=== PATIENT | female | born 1935 | race Caucasian/White ===

== ENCOUNTER 2019-04-12 12:20 | Inpatient (IN) | payer OTHER ==
[~2019-04-12] VITALS: Ht 157.5 cm; Wt 55.7 kg
--- NOTE | ~2019-04-12 | O ---
[facility] [place] [address] OPERATIVE REPORT Name: MALA VAZQUEZ Room #: 421-P [facility] IN M.R.#: [id number] Admission: 04/12/19 ������������������ Attend Phys: Khoa Juares MD Discharge: ������������������ Date of : 34 Report #: [id number] THIS REPORT FOR: //name// CC: Khoa Taylor DATE OF SERVICE: 04/13/2019 PREOPERATIVE DIAGNOSIS: Left hip valgus impacted femoral neck fracture. POSTOPERATIVE DIAGNOSIS: Left hip valgus impacted femoral neck fracture. PROCEDURE PERFORMED: Closed reduction percutaneous screw fixation of left hip fracture. SURGEON: Nisa Pena MD. ANESTHESIA: General mask anesthesia. ESTIMATED BLOOD LOSS: 10 mL. COMPLICATIONS: None. CONDITION: Stable. DISPOSITION: Recovery room. IMPLANTS USED: 7.3-mm screws. INDICATIONS: The patient is an 83-year-old female with the above-mentioned diagnosis. She elects for operative treatment. I discussed with both the patient and her son. I discussed everything with each separately. I did a conversation with her son earlier today. The typical procedure as well as postoperative course was discussed. The risks, benefits, alternatives and complications were discussed including but not limited to infection, damage to vessels or nerves, nonunion, malunion, hardware failure, hardware irritation and decreased ambulatory levels and blood clots. Informed consent was obtained. The correct extremity was identified and labeled by myself after verbal confirmation of the patient as well as visual confirmation and signed informed consent. DESCRIPTION OF PROCEDURE: The patient was brought back to the operating room and placed in supine position. The patient then underwent general anesthesia. She was placed on to the fracture table with careful attention placed to padding bony prominences. The left lower extremity was sterilely prepped and draped in usual fashion. Final timeout was taken to verify correct patient, operative [facility] [address] [place] [address] OPERATIVE REPORT Name: MALA VAZQUEZ Room #: 421-P [facility] IN ..#: [id number] Admission: 04/12/19 ������������������ Attend Phys: Khoa Juares MD Discharge: ������������������ Date of : 34 Report #: [id number] procedure, operative site, all concurred. Next, a guidewire was placed directly in the inferior center portion of the femoral neck up into the head. This was checked under fluoroscopy and was adjusted a few times. Once this was found to be in the appropriate position, approximately a 4-cm incision was made and two more guidewires were placed in an inverted triangle pattern. These were checked under fluoroscopy in both AP and lateral planes and found to be in good position. Next, proximal cortices were drilled. The screws were measured and appropriate size screws were placed. The posterior superior screw was then changed to a longer screw in order to facilitate improved fixation. These also were felt to have good fixation and to be in the appropriate position in the inferior portion of the femoral neck. The AP, lateral and live fluoroscopic view showed good position of the fracture and hardware. The wound was thoroughly irrigated. The deep tissue was closed with 0 Vicryl, subcutaneous tissues closed with 2-0 Vicryl and the skin with alexandrea. She was placed in a bulky dressing. All toes are pink with brisk cap refill at the conclusion of the case. All sponge and needle counts were correct. The patient was transferred to postoperative recovery room in stable condition. ��������������������������������������������� ���������������������������������������� By: ��������������������������������������������� 1750 1840 Nisa Pena MD /nt
[~2019-04-12 12:20] MED LIST: ACETAMINOPHEN325 M1 PO; AMBIEN 10 MG TA10 MG PO; BYSTOLIC 5 MG5 M1 PO; CARAFATE 1 GM TA1 G1 PO; CHLORPROMAZINE10 M2 PO; CIPRO250 M1 PO; CITRUCEL CAPLET1 TA1 PO; CLONAZEPAM 0.50.5 M1 PO; CLONIDINE PO; CLONIDINE0.1 PO; COLACE 100 MG100 MG PO; DIOVAN320 MG PO; HYDROCODON-ACE1 EAC7 PO; MI ACID LIQUID355 ML PO; NEXIUM 40 MG CA40 M1 PO; NORVASC10 MG PO; ONDANSETRON HCL4 M2 PO; ONDANSETRON HCL4 M3 PO; POTASSIUM20 PO; PROTONIX40 M2 PO; SENNA LAXATIVE25 MG PO; TOPROL XL100 MG PO; TRANSDERM-SCOP1 EACH TP
[2019-04-12 12:42] VITALS: BP 213/105
[2019-04-12 14:56] LABS: ABSOLUTE NEUTROPHILS 13.5 thou/uL (1.4-8.2); BASOPHILS 0.5 % (0.0-2.0); EOSINOPHILS 0.1 % (0.0-3.0); HEMATOCRIT 35.2 % (37.0-47.0); HEMOGLOBIN 11.5 gm/dL (12.0-15.0); LYMPHOCYTES 4.4 % (24.0-44.0); MCH 27.6 pg (26.0-34.0); MCHC 32.8 g/dL (28.0-37.0); MCV 84.1 fL (80.0-100.0); MONOCYTES 3.8 % (1.0-8.0); PLATELET COUNT 242 thou/uL (150-400); POLYS 91.2 % (36.0-66.0); RBC 4.18 mil/uL (4.20-5.00); RDW 13.9 % (10.5-14.5); WBC 14.8 thou/uL (4.0-11.0)
[2019-04-12 15:01] LABS: CALCIUM 8.9 mg/dL (8.5-10.1); POTASSIUM 3.7 mmol/L (3.5-5.1)
[2019-04-12 15:07] LABS: ALBUMIN 4.1 g/dL (3.4-5.0); TOTAL BILIRUBIN 0.8 mg/dL (<0.1-1.0); TOTAL PROTEIN 7.5 g/dL (6.4-8.2)
[2019-04-12 16:59] VITALS: BP 189/104
[2019-04-12 18:05] LABS: URINE BILIRUBIN NEGATIVE (Negative); URINE BLOOD TRACE (Negative); URINE CLARITY CLEAR; URINE COLOR YELLOW; URINE GLUCOSE-RANDOM* NEGATIVE (Negative); URINE KETONES 1+ (Negative); URINE LEUKOCYTES-REFLEX NEGATIVE (Negative); URINE NITRITE-REFLEX NEGATIVE (Negative); URINE PROTEIN (DIPSTICK) TRACE (Negative); URINE SPECIFIC GRAVITY 1.015 (1.005-1.035); URINE UROBILINOGEN 0.2 E.U./dl (0.2-1.0)
[2019-04-12 18:15] VITALS: BP 225/116
[2019-04-12 19:32] VITALS: BP 205/103
[2019-04-13 04:46] VITALS: BP 108/55
[2019-04-13 05:58] LABS: HEMATOCRIT 30.5 % (37.0-47.0); HEMOGLOBIN 10.3 gm/dL (12.0-15.0); MCH 28.5 pg (26.0-34.0); MCHC 33.7 g/dL (28.0-37.0); MCV 84.5 fL (80.0-100.0); RBC 3.61 mil/uL (4.20-5.00); RDW 13.7 % (10.5-14.5); WBC 9.9 thou/uL (4.0-11.0)
[2019-04-13 06:16] LABS: CALCIUM 8.2 mg/dL (8.5-10.1); CREATININE 1.3 mg/dL (0.6-1.0); POTASSIUM 4.1 mmol/L (3.5-5.1)
[2019-04-13 10:06] VITALS: BP 94/56
--- NOTE | 2019-04-13 16:13 | HC ---
[facility] [place] [address] CONSULTATION Name: MALA VAZQUEZ Room #: 421-P ADM IN M.R.#: [id number] Admission: 04/12/19 ������������������ Attend Phys: Khoa Juares MD Discharge: ������������������ Date of : 34 Report #: [id number] THIS REPORT FOR: //name// CC: Khoa Taylor REASON FOR CONSULTATION: Left hip fracture. HISTORY OF PRESENT ILLNESS: The patient is an 83-year-old female, fell on the sidewalk, hit her head, had leg pain. She denied loss of consciousness. She complains only of left hip and left knee pain with respect to the musculoskeletal system. REVIEW OF SYSTEMS: NEUROLOGIC: Denies numbness or tingling. MUSCULOSKELETAL: See HPI. ALLERGIES: THE PATIENT REPORTS A POSSIBLE ALLERGY TO PENICILLIN. THE CHART SHOWS WANDA INHIBITORS AND AMLODIPINE. SURGICAL HISTORY: None. PAST MEDICAL HISTORY: Hypertension, anxiety, osteoarthritis, esophagitis, apparently dyskinesia. SOCIAL HISTORY: She lives with her son. Denies smoking or drinking alcohol. She reports ambulating with a cane, although her chart states a walker. LABORATORY DATA: Done on 04/12/2019 shows white blood cell count 14.8, hemoglobin 11.5, hematocrit 35.2, platelet count 242. Sodium is 135. The remainder of BMP grossly normal except for glucose of 149. PHYSICAL EXAMINATION: GENERAL: The patient is alert and oriented x 3. She interacts appropriately. The patient is a well-developed, well-nourished, but thin female, in no acute distress. VITAL SIGNS: Most recent vital signs show a heart rate of 84, respirations 16, blood pressure 189/104 and pulse oximeter is 95% on 2 liters. EXTREMITIES: Examination of her bilateral upper extremities, she has diffuse digit arthrosis. The skin is clean, dry and intact. She has no tenderness to palpation throughout the bilateral sternum and clavicles, bilateral shoulders, arms, elbows, forearms, wrists and hands. She moves these joints all without pain and with functional range of motion. She is grossly sensory and motor intact. Bilateral lower extremity exam: Sensation is intact to light touch throughout. She has brisk capillary refill. She wiggles her toes. There are no knee effusions bilaterally. There is some mild diffuse left knee tenderness. [address] [address] CONSULTATION Name: MALA VAZQUEZ Room #: [address] [place] [address] IN M.R.#: [id number] Admission: 04/12/19 ������������������ Attend Phys: Khoa Juares MD Discharge: ������������������ Date of : 34 Report #: [id number] is grossly stable. There is mild left knee pain with range of motion. There is mild left hip pain with range of motion. There is no pain with right lower extremity range of motion. No pain with right ankle or foot range of motion. RADIOGRAPHS: AP, lateral of the left knee were evaluated by myself, which shows no evidence of fracture, no joint effusion is noted. AP pelvis and AP lateral of left hip show a subcapital femoral neck fracture that is valgus impacted. IMPRESSION AND PLAN: Left subcapital femoral neck fracture, valgus impacted. I discussed the diagnosis as well as treatment options with the patient. I discussed percutaneous pinning, which most likely will happen tomorrow morning at 7:30. We discussed typical procedure as well as postoperative course. The risks, benefits, alternatives, complications were discussed including but not limited to infection, damage to vessels or nerves, nonunion, malunion, hardware failure, hardware rotation, blood clots, decrease in ambulatory level. Informed consent was obtained. The plan is to have her surgery tomorrow morning. Questions were encouraged and answered to the best of my ability. ��������������������������������������������� <ELECTRONICALLY SIGNED> ���������������������������������������� By: Nisa Pena MD ��������������������������������������������� 04/13/19 1613 1823 [id number] Nisa Pena MD /nt
[2019-04-13 18:27] LABS: HEMATOCRIT 35.3 % (37.0-47.0); HEMOGLOBIN 11.4 gm/dL (12.0-15.0); MCH 28.3 pg (26.0-34.0); MCHC 32.4 g/dL (28.0-37.0); MCV 87.5 fL (80.0-100.0); RBC 4.03 mil/uL (4.20-5.00); RDW 14.4 % (10.5-14.5); WBC 13.3 thou/uL (4.0-11.0)
[2019-04-13 19:30] VITALS: BP 155/83
[2019-04-14] VITALS: BP 110/61
[2019-04-14 03:35] VITALS: BP 101/57
[2019-04-14 04:50] LABS: HEMATOCRIT 27.9 % (37.0-47.0); MCH 28.6 pg (26.0-34.0); MCHC 33.5 g/dL (28.0-37.0); MCV 85.2 fL (80.0-100.0); RBC 3.28 mil/uL (4.20-5.00); WBC 7.6 thou/uL (4.0-11.0)
[2019-04-14 04:51] LABS: HEMOGLOBIN 9.4 gm/dL (12.0-15.0)
[2019-04-14 09:18] VITALS: BP 107/67
[2019-04-14 17:48] VITALS: BP 101/55
[2019-04-14 19:40] VITALS: BP 117/60
[2019-04-14 22:00] VITALS: BP 117/60
[2019-04-15 03:45] VITALS: BP 117/63
[2019-04-15 05:01] LABS: HEMATOCRIT 26.3 % (37.0-47.0); HEMOGLOBIN 8.9 gm/dL (12.0-15.0); MCH 28.9 pg (26.0-34.0); MCHC 33.7 g/dL (28.0-37.0); MCV 85.6 fL (80.0-100.0); RBC 3.07 mil/uL (4.20-5.00); RDW 14.2 % (10.5-14.5)
[2019-04-15 08:39] VITALS: BP 144/71
[2019-04-15 17:45] VITALS: BP 97/59
[2019-04-15 19:55] VITALS: BP 104/58
[2019-04-16 05:28] VITALS: BP 140/73
[2019-04-16 07:38] VITALS: BP 177/83
[2019-04-16 08:44] LABS: HEMATOCRIT 28.6 % (37.0-47.0); HEMOGLOBIN 9.7 gm/dL (12.0-15.0)
[2019-04-16 16:26] VITALS: BP 173/76
[2019-04-16 20:00] VITALS: BP 138/76
[2019-04-17 06:57] VITALS: BP 164/75
[2019-04-17 07:35] VITALS: BP 198/107
[2019-04-17 07:41] VITALS: BP 197/107
[2019-04-17 11:07] VITALS: BP 134/71
[2019-04-17 16:07] VITALS: BP 179/79
== END 2019-04-17 18:00 | DRG 481 ==
LOC: ER 12:20 → EROBS 15:09 → 4E 15:09
PROVIDERS: Orthopaedic Surgery Hand Surgery; Physician Assistant; ADMIT Hospitalist
PROC: 0HQ1XZZ Repair Face Skin, External Approach (ICD-10-PCS; principal; 2019-04-12)
PROC: 0QH734Z Insertion of Internal Fixation Device into Left Upper Femur, Percutaneous Approach (ICD-10-PCS; 2019-04-13)
DX: S72.002A Fracture of unspecified part of neck of left femur, initial encounter for closed fracture (principal); D62 Acute posthemorrhagic anemia; S01.112A Laceration without foreign body of left eyelid and periocular area, initial encounter; I10 Essential (primary) hypertension; F41.9 Anxiety disorder, unspecified; M19.90 Unspecified osteoarthritis, unspecified site; K21.9 Gastro-esophageal reflux disease without esophagitis; W18.39XA Other fall on same level, initial encounter; D72.829 Elevated white blood cell count, unspecified; S80.212A Abrasion, left knee, initial encounter; K59.00 Constipation, unspecified; S80.211A Abrasion, right knee, initial encounter; H91.90 Unspecified hearing loss, unspecified ear; G47.00 Insomnia, unspecified; Z88.8 Allergy status to other drugs, medicaments and biological substances; Z79.899 Other long term (current) drug therapy; Z87.19 Personal history of other diseases of the digestive system; Z87.820 Personal history of traumatic brain injury; Y93.89 Activity, other specified; Y92.89 Other specified places as the place of occurrence of the external cause; Y99.8 Other external cause status; Z23 Encounter for immunization
CPT/HCPCS: 10084; 50010; 50101; 50386; 51412; 51538; 53400; 53404; 56524; 57092; 62110; 62900; 70005

== ENCOUNTER 2019-04-17 15:31 | Inpatient (IN) | payer OTHER ==
[~2019-04-17] VITALS: Ht 154.9 cm; Wt 59.4 kg
[2019-04-17 18:15] VITALS: BP 199/91
--- NOTE | 2019-04-17 19:37 | NUR ---
PT ADMITED TO ROOM 515 FOR LEFT HIP FX S/P ORIF ON 4 DAYS AFTER FALL AT HOME. PT CAME TO THE UNIT AT 1800. ADMISSION MED LIST FAXED TO PHARMACY. PHYSICIANS CONSULTS WERE NOTIFIED. ALERT AND ORIENTED X4 VERY [place] BUT ABLE TO COMMUNICATE AND READ LIPS. B/P 191/91. C/O GAGGING. HOB FOR SWALLOWING PRECAUTION. C/O ABD PAIN 06/30, LAST BM WAS YESTERDAY. BS HYPOACTIVE. HAS NO PRN HYPERTENSIVE, NO NAUSEA MED, NO LAXATIVE, NO PAIN MED AT THIS MOMENT. CALLED AND NOTIFIED DR. MONROE PT'S NEEDS FOR PRN HYPERTENSIVE SINCE HYPERTENSIVE IS PT'S ISSUES. OBTAINED LAXATIVE, PAIN MED. GAVE NIGHT MEDS EARLIER FOR NEEDS. DRESSING ON LEFT HIP FELL OFF. PT HAS 6 PRATIK INTACT, CLEANED AND REDRESSED WITH OPTIFOAM. GAVE REPORT TO NIGHT NURSE TO COMPLETE ADMISSION AND MONITOR PT'S HIGH B/P, PAIN, NAUSEA AND BM. PT IS RESTING IN BED. FALL PRECAUTION IN PLACE. CALL LIGHT WITHIN REACH.
[2019-04-17 20:50] VITALS: BP 189/107
[2019-04-17 23:50] VITALS: BP 167/85
[2019-04-18] VITALS (8 sets, daily range): BP systolic 147–192; BP diastolic 70–102
--- NOTE | 2019-04-18 02:55 | NUR ---
PT ALERT AND ORIENTED X 4. UP TO BSC WITH ASSIST X 1. DRESSING TO LEFT HIP C/D/I. SUTURES INTACT NEAR LEFT EYE. PT C/O NAUSEA. ZOFRAN GIVEN AT HS WITH SOME RELIEF VERBALIZED. BP ELEVATED. 189/107 AT 2054. KESHA CRANE INSURANCE PROCESSING CLERK NOTIFIED WITH ORDERS RECEIVED. CLONIDINE 0.2 MG GIVEN AT 2136. RECHECKED AT 2350 AND IT WAS 167/85. PRN HYDRALAZINE GIVEN. WILL CONTINUE TO MONITOR. BED ALARM ON FOR SAFETY. PT APPEARS TO BE SLEEPING ON HOURLY ROUNDS.
[2019-04-18 06:26] LABS: HEMATOCRIT 27.6 % (37.0-47.0); HEMOGLOBIN 9.5 gm/dL (12.0-15.0); MCH 28.9 pg (26.0-34.0); MCHC 34.6 g/dL (28.0-37.0); MCV 83.7 fL (80.0-100.0); RBC 3.29 mil/uL (4.20-5.00); RDW 14.6 % (10.5-14.5); WBC 6.2 thou/uL (4.0-11.0)
[2019-04-18 06:35] LABS: CALCIUM 8.4 mg/dL (8.5-10.1); CREATININE 0.7 mg/dL (0.6-1.0); POTASSIUM 3.5 mmol/L (3.5-5.1)
[2019-04-18 06:38] LABS: PROTIME 10.8 Seconds (9.3-11.4)
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
[2019-04-18 08:03] LABS: ALBUMIN 2.7 g/dL (3.4-5.0); TOTAL BILIRUBIN 0.5 mg/dL (<0.1-1.0); TOTAL PROTEIN 5.8 g/dL (6.4-8.2)
--- NOTE | 2019-04-18 19:28 | NUR ---
ASSUMED CARE AT APPROX 0715. PATIENT A/O X4. [place]. C/O NAUSEA. VOMITED X2 THIS AM. MORNING MEDS NOT TOLERATED, PROVIDER NOTIFIED. BP ELEVATED, CLONIDINE PATCH APPLIED. PATIENT UP X 1, MIN ASSIST, TTWB ON LLE. FOAM TO LEFT HIP C/D/I. PATIENT COMPLETED SOME THERAPY. REPORTS HEADACHE, UNABLE TO TOLERATE TYLENOL PO. COMPAZINE SUPPOSITORY AND SUBLINGUAL ZOFRAN GIVEN PER ORDERS. FALL PRECAUTIONS IN PLACE. RESTING IN BED AT CHANGE OF SHIFT
--- NOTE | 2019-04-19 03:34 | NUR ---
PT ALERT AND ORIENTED X 4. UP TO BSC WITH ASSIST X 1. LEFT HIP DRESSING C/D/I. STILL HAS SOME NAUSEA BUT BETTER. NO VOMITING. PT ABLE TO TAKE PILLS SO FAR TONIGHT ONE AT A TIME WITH SIPS OF SODA. BP ELEVATED 192/98. PRN HYDRALAZINE GIVEN ORDERED. C/O HEADACHE. TYLENOL GIVEN AND PT SLEEPING UPON REASSESSMENT. CLONAZEPAM GIVEN AT 2325 FOR ANXIETY. ABDOMEN SOFT WITH HYPOACTIVE BOWEL SOUNDS NOTED. NO BM SO FAR TONIGHT. BED ALARM ON FOR SAFETY. PT APPEARS TO BE SLEEPING ON HOURLY ROUNDS.
[2019-04-19 05:15] VITALS: BP 158/78
[2019-04-19 05:48] LABS: INR 1.1; PROTIME 11.2 Seconds (9.3-11.4)
[2019-04-19 08:13] VITALS: BP 155/69
--- NOTE | 2019-04-19 08:29 | NUR ---
ASSUMED CARE AT APPROX 0715. PATIENT A/O X4. [place]. DENIES NAUSEA. KUB YESTERDAY SHOWS COLONIC ILEUS. BS HYPOACTIVE. NOTIFIED ZEB EARLY THIS AM. NOT ABLE TO GET HOLD, CALLED DR. MAHER. OBTAINED BISACODYL SUPP. AND GIVEN. BS PRESENT NOW. MORNING MEDS WITH APPLE SAUCE, TOLERATE WELL. B/P 155/69, HR 77. PT STILL GASGING/ BURPING OCCASIONALLY. PATIENT UP X 1, MIN ASSIST, TTWB ON LLE. FOAM TO LEFT HIP C/D/I. REASSESSMENT PER CHART. VSS ON ROOM AIR. LABS REVIEWED. OFFERED SUPPORTIVE CARE. OT GAVE BATH PT THIS AM. SITTING IN RECLINER, CONTINUE TO BE ON CLEAR LIQUID. C/O LLE 5/10, PRN TYLENOL GIVEN. FALL PRECAUTIONS IN PLACE. CALL LIGHT WITHIN REACH. WILL CONTINUE TO MONITOR.
[2019-04-19 11:14] VITALS: BP 145/84
[2019-04-19 20:33] VITALS: BP 202/102
--- NOTE | 2019-04-20 05:12 | NUR ---
PATIENT ALERT AND ORIENTED X4. DENIES PAIN. VERY [place]. NO IV ACCESS. REMAINS ON 1500CC FR. DENIES N/V. UP TO BSC WITH TT WITH LLE. BP UP WITH VS AT BEGINNING OF SHIFT, 202/102. HYDRALAZINE GIVEN. AT 2145 BP WAS 174/87. DRESSING ON L HIP D/I. SLEPT MOST OF NIGHT.
[2019-04-20 09:10] VITALS: BP 142/86
--- NOTE | 2019-04-20 10:52 | NUR ---
PATIENT CARE WAS ASSUMED AT 0715.PATIENT IS ALERT AND ORIENTED X4.PT IS [place].PATIENT HAS ISSUES WITH NAUSEA/VOMITTING, AND CONSTIPATION, WHICH HAVE RESOLVED.PT LAST BM WAS 04/19/19.PT IS ON A 1500 FLUID RESTRICTION.PT IS TOE TOUCH ONLY WITH ASSIST X1, WITH WALKER.PATIENT IS [place].PT DIET WAS ADVANCED TO FULL LIQUIDS, AND CAN BE ADVANCED TOLERATED.PT WAS WORKING WITH OT TAKING A SHOWER AND GETTING DRESSED GETTING READY FOR BREAKFAST.PT HAS CALL LIGHT,PHONE, PERSONAL BELONGINGS WITHIN REACH.
[2019-04-20 19:47] VITALS: BP 139/85
--- NOTE | 2019-04-21 02:42 | NUR ---
PT ALERT AND ORIENTED X 4. AMB TO BR WITH WALKER AND ASSIST X 1 WITHOUT DIFFICULTY. LEFT HIP DRESSING C/D/I. PT DENIES PAIN OR DISCOMFORT. PT DENIES NAUSEA, NO VOMITING. TAKES MEDS WITH WATER WITHOUT DIFFICULTY. BED ALARM ON FOR SAFETY. CLONAZEPAM GIVEN PER PT REQUEST FOR ANXIETY. PT APPEARS TO BE SLEEPING ON HOURLY ROUNDS.
--- NOTE | 2019-04-21 10:22 | NUR ---
PATIENT CARE WAS ASSUMED AT 0715.PATIENT IS ALERT AND ORIENTED X4.PATIENT STATED SHE DIDN'T FEEL GOOD THIS MORNING.PATIENT HAD LOOSE STOOL FROM LAXATIVE THIS MORNING,WILL HOLD LAXATIVES FOR NOW.PATIENT HAS NO COMPLAINS OF PAIN.B/P WAS ELEVATED, WILL RECHECK, AND B/P MEDICATION.PT IS ABLE TO AMBULATE WITH WALKER USING TOE TOUCH BARRIERS.DRESSING IS DRY CLEAN AND INTACT, OPTIFORM.PT PERFERS TO TAKE MEDS WITH APPLESAUCE TO HELP SWALLOW THE BIGGER PILLS.FALL PRECATIONS ARE IN PLACE.WHEN PT IS IN CHAIR, AND BED CALL LIGHT,PHONE, AND PERSONAL BELONGINGS ARE WITHIN REACH.
[2019-04-21 21:09] VITALS: BP 176/93
[2019-04-22 00:11] VITALS: BP 152/76
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
[2019-04-22 08:00] VITALS: BP 199/81
--- NOTE | 2019-04-22 12:24 | NUR ---
ASSUMED CARE AT 0700. PATIENT IS ALERT AND ORIENTED X4. PATIENT SANABRIA'S, C D REACTOR OPERATOR ARE EQUAL. LUNGS ARE CLEAR. ABD IS SOFT WITH BSX4. PATIENT UP TO THE BATHROOM TO VOID KEILY COLORED URINE. UP IN THE CHAIR FOR BREAKFAST. FALL AND SAFETY PROTOCOLS IN PLACE. DENIES ANY PAIN AT THIS TIME. WILL CONNTINUE TO MONITER.
--- NOTE | 2019-04-22 12:35 | NUR ---
PATIENT HAS LEFT HIP DRESSING THAT IS DRY AND INTACT. PATIENT IS TOE TOUCH WT BEARING FOR TRANSFERS. LAXATIVES HELD TODAY. WILL CONTINIUE TO MONITER.
[2019-04-22 19:08] VITALS: BP 121/66
--- NOTE | 2019-04-23 00:58 | NUR ---
PT ASSESSMENT COMPLETED AND VSS. MEDS GIVEN ORDERED AND WELL TOLERATED. FALL PRECAUTIONS IN PLACE. UP TO THE BATHROOM WITH WHEELCHAIR/PIVOT/GAIT. ASST WITH REPOSITION FOR COMFORT. REFUSED ALL LAXATIVES BECAUSE PT HAVE SEVERAL BMS DURING THE DAY. SLEEPING WELL. WILL CONTINUE TO MONITOR FREQUENTLY. HIP DSG DRY AND INTACT.
--- NOTE | 2019-04-23 08:13 | NUR ---
PATIENT CARE WAS ASSUMED AT 0715.PATIENT IS ALERT AND ORIENTED X4.PT IS HARD OF HEARING.OT SHOWERED, DRESSED, AND PLACED PT IN IN CHAIR FOR BREAKFAST.PT HAS NO COMPLAINS OF PAIN OR STOMACH UPSET.PT WANTS TO TRY TO EAT REGULAR FOOD.PT HAS NO IV ACCESS.CALL LIGHT,PHONE, AND PERSONAL BELONGINGS ARE WITHIN REACH.
[2019-04-23 08:40] VITALS: BP 145/74
--- NOTE | 2019-04-23 15:37 | NUR ---
SUTURES WERE TAKEN OUT PT'S LEFT EYE LID, AND CLEANED UP WITH SOAP AND WATER.PATIENT HAS SCAB IN THAT AREA.PATIENT TOLERATED VERY WELL.3 SUTURES WERE REMOVED BY NURSE.
[2019-04-23 19:23] VITALS: BP 149/86
--- NOTE | 2019-04-24 01:16 | NUR ---
PT ALERT AND ORIENTED X 4. PIVOT TRANFER TO W/C AND THEN TO TOILET. TTWB ON LLE. DRESSING TO LEFT HIP C/D/I. PT DENIES PAIN OR DISCOMFORT. NO N/V. TYLENOL AND CLONAZEPAM GIVEN AT HS PER PT REQUEST FOR SLEEP. BED ALARM ON FOR SAFETY. PT APPEARS TO BE SLEEPING ON HOURLY ROUNDS.
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
[2019-04-24 08:00] VITALS: BP 156/91
--- NOTE | 2019-04-24 13:51 | NUR ---
team meeting, recommendation: re team, with 13th. family training with son, will need manually wheel, and hh ( pt ,ot, nursing). will cont following.
--- NOTE | 2019-04-24 14:36 | NUR ---
ASSUMED CARE AT APPROX 0715. PATIENT A/O X4. [place]. OT GAVE PT SHOWER AND PT WALKED WITH PT THIS AM. PT WORKED WITH ST AND C/O NOT FEELING WELL. PT WAS ANXIOUS AND ASKED FOR ANXIETY MEDICATION. NOTIFIED ZEB AND OBTAINED ONE TIME XANAX. PT C/O DISCOMFORT ABD. ZOFRAN GIVEN AND BISACODYL PRN SUPPOSITORY GIVEN. HAS HX OF COLONIC ILEUS. BS HYPOACTIVE. LAST BM WAS YESTERDAY.(SMALL SOFT BM) PATIENT UP X 1, MIN ASSIST, TTWB ON LLE. FOAM TO LEFT HIP C/D/I. REASSESSMENT PER CHART. VSS ON ROOM AIR. LABS REVIEWED. OFFERED SUPPORTIVE CARE. MORNING MEDS GIVEN WITH PRN TYLENOL FOR MILD LEFT LEG PAIN. C/O NOT SLEEPING WELL LAST NIGHT. NOTIFIED ZEB AND OBTAINED ORDER FOR MELATONIN. RESTING IN BED AT THIS MOMENT. FALL PRECAUTIONS IN PLACE. CALL LIGHT WITHIN REACH. WILL CONTINUE TO MONITOR.
[2019-04-24 18:46] VITALS: BP 156/91
[2019-04-24 19:42] VITALS: BP 138/77
--- NOTE | 2019-04-25 01:36 | NUR ---
PT ALERT AND ORIENTED X 4. AMB TO BR WITH WALKER AND ASSIST X 1 WITHOUT DIFFICULTY. DRESSING LEFT HIP C/D/I. PT DENIES PAIN OR DISCOMFORT. MELATONIN GIVEN AT HS FOR SLEEP. BED ALARM ON FOR SAFETY. PT APPEARS TO BE SLEEPING ON HOURLY ROUNDS.
[2019-04-25 08:37] VITALS: BP 181/94
--- NOTE | 2019-04-25 12:43 | NUR ---
ASSUMED CARES AT 0700. PT AWAKE, ALERT AND ORIENTED *4. DENIES PAIN. BP ELEVATED THIS AM 181/94, TOOK IT AN HOUR AFTER SBP 154. ALL OTHER VITALS REMAIN STABLE. ABDOMEN SOFT AND ROUND, BS ACTIVE, LAST BM 04/24. PT DENIES N&V. BLE EDEMA, EXTREMITIES ELEVATED, PULSES 2+/2+. PT UP WITH 1 MIN ASSIST, PARTICIPATED IN ALL THERAPIES AND TOLERATED WELL. Q1H VISUAL CHECKS. CALL LIGHT WITHIN REACH. FALL PRECAUTIONS IN PLACE
--- NOTE | 2019-04-25 15:18 | NUR ---
Patient participated in community reintegration on 04/25/19 with OCCUPATIONAL THERAPY. Refer to documentation by [facility].
--- NOTE | 2019-04-25 15:35 | NUR ---
Pt PARTICIPATED IN COMMUNITY REINTEGRATION ACTIVITY WITH OT ON 04/25/19, PLEASE REFER TO OT DOCUMENTATION
[2019-04-25 19:13] VITALS: BP 126/83
--- NOTE | 2019-04-25 23:59 | NUR ---
PT ASSESSMENT COMPLETED AND VSS. MEDS GIVEN ORDERED AND WELL TOLERATED. FALL PRECUATIONS IN PLACE. VOIDING MODERATE AMOUNT OF YELLOW URINE. SLEEPING WELL AT THIS TIME. WILL CONTINUE TO MONITOR FREQUENTLY.
[2019-04-26 09:12] VITALS: BP 139/90
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
--- NOTE | 2019-04-26 15:25 | NUR ---
ASSUMED CARES AT 0700. PT AWAKE, ALERT AND ORIENTED*4. DENIES PAIN. VITALS REMAIN STABLE. ABDOMEN SOFT AND ROUND, *2 BM TODAY SOFT, PT REFUSED LAXATIVES THIS AM. DENIES N&V. INCISION ON HIP LEFT REMAINS DRY AND INTACT, DRESSING CHANGED, PRATIK REMAIN INTACT. PT REMAINS TOE-TOUCH WEIGHT BEARING ON LEFT LOWER EXTREMITY. UP WITH PIVOT TRANSFERS TO CHAIR/BATHROOM. Q1H VISUAL CHECKS. CALL LIGHT WITHIN REACH
[2019-04-26 19:54] VITALS: BP 145/84
--- NOTE | 2019-04-27 01:37 | NUR ---
PT ALERT AND ORIENTED X 4. UP TO W/C AND THEN TO TOILET WITH ASSIST X 1. LEFT HIP DRESSING C/D/I. PT REFUSED DULCOLAX SUPP AT HS. PT HAS RASH UNDER RIGHT BREAST AND ON RIGHT UPPER ARM. ANA AGUILAR NP NOTIFIED WITH ORDER RECEIVED. HYDROCORTISONE CREAM APPLIED TO AREAS ORDERED. PT DENIES PAIN OR DISCOMFORT. CLONAZEPAM AND MELATONIN GIVEN AT HS FOR SLEEP. BED ALARM ON FOR SAFETY. PT APPEARS TO BE SLEEPING ON HOURLY ROUNDS.
[2019-04-27 08:15] VITALS: BP 128/72
--- NOTE | 2019-04-27 12:59 | NUR ---
Nutrition: pt admitted with L hip fx S/P fixation to rehab unit. Seen due to LOS. No significant weight changes reported. Intake is good 50-100% of meals on regular diet. Ensure ordered BID. Pt drinks and would like to continue. Place as low risk.
--- NOTE | 2019-04-27 20:24 | NUR ---
ASSUMED CARE OF PT AT 0715. PT IS A&OX4 AND VITAL SIGNS ARE STABLE. PT HAS OPTIFOAM TO LEFT HIP OVER SURGICAL SITE. RASH TO THE RIGHT UPPER ARM AND UNDER/AROUND RIGHT BREAST TREATED WITH HYDROCORTIZONE CREAM PER ORDERS. BOWEL SOUNDS ACTIVE. PT REPORTED NO PAIN AND PARTICIPATED IN SCHEDULED THERAPIES. PT TRANSFERS TO W/C WITH 1 PERSON ASSISTANCE TO PIVOT WITH TOE TOUCH WEIGHT BEARING LIMITS. PT TAKES MEDICATIONS 1 AT A TIME WITH WATER. FALL PREACAUTIONS IN PLACE AND NURSING WILL CONTINUE TO MONITOR.
[2019-04-27 20:30] VITALS: BP 117/61
--- NOTE | 2019-04-28 01:29 | NUR ---
PT ASSESSMENT COMPLETED AND VSS. MEDS GIVEN ORDERED AND WELL TOLERATED. FALL PRECAUTIONS IN PLACE. UP TO THE BATHROOM WITH ASST/GAIT/WALKER. STEADY. DSG ON LEFT HIP DRY AND INTACT. SLEEPING WELL. WILL CONTINUE TO MONITOR FREQUENTLY.
[2019-04-28 09:30] VITALS: BP 129/77
--- NOTE | 2019-04-28 12:41 | NUR ---
ASSUMED CARES AT 0700. PT AWAKE, ALERT AND ORIENTED*4. DENIES PAIN. DENIES N&V. VITALS REMAIN STABLE. ABDOMEN SOFT AND ROUND, BS ACTIVE*4, BM THIS AM. STOOL SOFTENORS AND LAXATIVES ADMINISTERED SCHEDULED. INCISION IN HIP LEFT REMAINS DRY AND PRATIK ARE INTACT. PT REMAINS TOE-TOUCH WEIGHT BEARING ON LEFT EXTREMITY. UP WITH 1 MIN ASSIST PIVOT TRANSFERS. Q1H VISUAL CHECKS. CALL LIGHT WITHIN REACH. FALL PRECAUTIONS IN PLACE
--- NOTE | 2019-04-29 03:12 | NUR ---
assumed care at approx 1900 [facility] 04/28. pt lying in bed with head of bed elevated resting at change of shift. pt alert and oriented x4, appropirate and cooperative. pt took hs meds with water tolerating well and appears to be sleeping soundly with hourly rounding checks. bed alarm on and call light in reach. will continue to monitor.
[2019-04-29 07:30] VITALS: BP 144/77
--- NOTE | 2019-04-29 12:33 | NUR ---
ASSUMED CARE OF PT AT 0715. PT IS A&OX4 AND VITAL SIGNS ARE STABLE. PT REPORTS NO PAIN AND PARTICIPTED IN SCHEDULED THERAPIES. PT TAKES MEDICAITONS WHOLE WITH THIN LIQUIDS. TOE TOUCH WEIGHT BEARING TO THE LEFT LEG. PT PIVOT TRANSFERS WITH 1 PERSON USING GAIT BELT AND WALKER TO W/C. FALL PRECAUTIONS IN PLACE AND NURSING WILL CONTINUE TO MONITOR.
[2019-04-29 19:45] VITALS: BP 123/64
--- NOTE | 2019-04-30 01:38 | NUR ---
PT ALERT AND ORIENTED X 4. UP TO W/C AND THEN TO TOILET PIVOT ASSIST X 1. LEFT HIP DRESSING C/D/I. PT DENIES PAIN OR DISCOMFORT. MELATONIN AND CLONAZEPAM GIVEN AT HS PER PT REQUEST FOR SLEEP. BED ALARM ON FOR SAFETY. PT APPEARS TO BE SLEEPING ON HOURLY ROUNDS.
[2019-04-30 07:30] VITALS: BP 182/89
--- NOTE | 2019-04-30 10:00 | NUR ---
deidra left message with son prabhjot latham.
--- NOTE | 2019-04-30 10:49 | NUR ---
[facility] OFFICE CALLED BY NURSING. MESSAGE LEFT REGUARDING NEED STAPLE REMOVAL ORDERS.
[2019-04-30 19:55] VITALS: BP 163/84
--- NOTE | 2019-04-30 20:27 | NUR ---
ASSUMED CARE OF PT AT 0715. PT IS A&OX4 WITH PERIODS OF FORGETFULNESS. BLOOD PRESSURE WAS INCREASED THIS MORNING, BUT WAS TREATED SUCCESSFULL WITH ORAL MEDICAITONS PER ORDERS. PT REPORTS NO PAIN AND PARTICIPATED IN SCHEDULED THERAPIES. PT DID REPORT FEELING ITCHY ON HER UPPER ARMS BILATERALLY WHERE SHE HAD A REACTION TO MEDICAITON PATCH AND WAS TREATED WITH HYDROCORTIZONE CREAM PER ORDERS. PT TAKES MEDICAITONS WHOLE WITH THIN LIQUIDS. PT TRANSFERS WITH 1 PERSON MINIMUM ASSISTANCE WITH GAIT BELT AND WALKER AND IS TOE TOUCH WEIGHT BEARING TO THE E. ORDERS TO CONTACT [facility] FOR ORDERS FOR STAPLE REMOVAL AND F/U, CALL MADE AND MESSAGE LEFT WITH [facility] WITH NO RETURN CALL THIS SHIFT. FALL PRECAUTIONS IN PLACE AND NURSING WILL CONTINUE TO MONITOR.
--- NOTE | 2019-05-01 02:16 | NUR ---
assumed care at approx 1900 evening 04/30. pt lying in bed with head of bed elevated at change of shift. pt alert and oriented x4, appropriate and cooperative. pt assisted up to w/c to void and have bm in toilet tonight. pt took hs meds with water tolerating well. pt appears to be sleeping soundly with hourly rounding checks. bed alarm on and call light in reach. will continue to monitor.
[2019-05-01 06:09] LABS: ABSOLUTE NEUTROPHILS 4.6 thou/uL (1.4-8.2); BASOPHILS 0.7 % (0.0-2.0); EOSINOPHILS 6.7 % (0.0-3.0); HEMATOCRIT 32.3 % (37.0-47.0); HEMOGLOBIN 10.6 gm/dL (12.0-15.0); LYMPHOCYTES 24.3 % (24.0-44.0); MCH 28.2 pg (26.0-34.0); MCHC 32.9 g/dL (28.0-37.0); MCV 85.6 fL (80.0-100.0); MONOCYTES 10.4 % (1.0-8.0); PLATELET COUNT 362 thou/uL (150-400); POLYS 57.9 % (36.0-66.0); RBC 3.77 mil/uL (4.20-5.00); RDW 14.7 % (10.5-14.5); WBC 7.9 thou/uL (4.0-11.0)
[2019-05-01 06:12] LABS: CALCIUM 9.1 mg/dL (8.5-10.1); CREATININE 0.8 mg/dL (0.6-1.0); MAGNESIUM 2.3 mg/dL (1.8-2.4); POTASSIUM 4.4 mmol/L (3.5-5.1)
[2019-05-01 09:12] VITALS: BP 154/97
--- NOTE | 2019-05-01 11:55 | NUR ---
NEYDA NOTIFIED THAT PT FAMILY SON AND 1 OF HER DAUGHTER DID NOT MAKE IT TO FAMILY TRAINING TODAY AT 1030, SON ROMULO CALLED AROUND 1045 STATED " UNABLE TO MAKE IT TO THERAPY TRAINING WERE SICK"/ROMULO. SON ASKED BEDSIDE NURSE IF PT GOING HOME TODAY, PT AND FAMILY WAS SUPPOSED TO HAVE FAMILY TRAINING WITH WHEEL CHAIR, TRANSFERS AND EDUCATION ON NEEDS PT WILL REQUIRED AT HOME TO SEE IF PT AND FAMILY POSSIBLE NEEDS. IF TRAINING WENT WILL WOULD AND TEAM DECIDE IF PT COULD BE DC HOME TODAY WITH LESLIE BERUMEN SINCE 1 OF PT DAUGHTER WOULD BE ABLE TO HELP OUT TODAY AND NOT HAVE TO WAIT TILL WEEKEND BEFORE SON WOULD HAVE ASSISTANCE FROM ONE OF HIS SISTER SIBLINGS, OR A SHORT TERM SKILLED SNF. WILL CONT FOLLOWING NEEDED FOR DC NEEDS.
--- NOTE | 2019-05-01 18:06 | NUR ---
0700 ASSUMED CARE AT 0700. PATIENT IS ALERT AND ORIENTEDX4. PATIENT SANABRIA'S, FORGE TENDER ARE EQUAL. LUNGS ARE CLEAR. ABD IS SOFT AND ROUNDED . BSX4. PATIENT HAD A BM TODAY. PATIENT PRATIK INTACT AND COVERED BY OPTIFOAM. UP IN THE CHAIR FOR BREAKFAST. UP WITH STAND/PIVOT TURN TO W/C TO USE BATHROOM. FALL AND SAFETY PROTOCOLS IN PLACE. DENIES ANY PAIN AT THIS TIME. WILL CONTINUE TO MONITER.
--- NOTE | 2019-05-01 18:14 | NUR ---
ORDERS RECIEVED TO REMOVE PRATIK FROM LEFT HIP. AREA. PATIENT TOLERATED PROCEDURE WELL. LEFT HIP AREA COVERED WITH STERI-STRIPS. WILL CONTINUE TO MONITER.
[2019-05-01 19:43] VITALS: BP 145/84
--- NOTE | 2019-05-02 05:43 | NUR ---
Assumed care for pt @1900 pt alert and oriented x4, denies pain. vss. stated itiching on hands cream applied for comfort. hs meds given and crushed in apple sauce, karyn meds well. Up with SBA. steri strips on left hip intact. hourly rounding done, fall prec in place. will continue to monitor
[2019-05-02 07:15] VITALS: BP 138/73
--- NOTE | 2019-05-02 08:02 | NUR ---
ASSUMED CARE AT 0700. PATIENT IS ALERT AND ORIENTEDX4. PATIENT SANABRIA'S, CODING SPEC ARE EQUAL. PATIENT IS VERY [place], AND HAS HEARING AIDS. LUNGS ARE CLEAR. ABD IS SOFT WITH BSX4. PATIENT HAS STERI-STRIPS IN PLACE ON LEFT HIP. UP WITH ASSIST OF 1 STAFF , STAND, PIVOT, SIT IN W/C. UP TO THE BATHROOM TO VOID KEILY COLORED URINE. FALL AND SAFETY PROTOCOLS IN PLACE. DENIES PAIN AT THIS TIME. CONTINUES TO PROGRESS TOWARDS D/C GOALS. WILL CONTINUE TO MONITER.
--- NOTE | 2019-05-02 12:03 | NUR ---
cm left message with son prabhjot in am to see if had looked at snf list left with hui yesterday rt dc skilled. cm visited with hui at bedside " ok for [facility] but i just want to go home and see my pet and want to make sure that is ok with son, have you talked with him today?"/pt. education that left message but has not called back. referral to be [place] to [facility] [place].
--- NOTE | 2019-05-02 14:15 | NUR ---
[facility] ROMA IN ADM SHE RECEIVED REFERRAL AND CAN ACCEPT PT AT DC. ANTICIPATE DC FRIDAY 05/04. DCP TO FOLLOW.
--- NOTE | 2019-05-02 14:27 | NUR ---
Patient participated in community reintegration on 05/02/19 with PHYSICAL THERAPY. Refer to documentation by PHYSICAL THERAPY.
--- NOTE | 2019-05-02 15:12 | NUR ---
Patient participated in community reintegration on 05/02/19 with PHYSICAL THERAPY. Refer to documentation by PT. MILADY
[2019-05-02 19:39] VITALS: BP 117/64
--- NOTE | 2019-05-03 01:19 | NUR ---
PT ASSESSMENT COMPLETED AND VSS. MEDS GIVEN ORDERED AND WELL TOLERATED. FALL PRECAUTIONS IN PLACE. UP TO THE BATHROOM WITH ASST/GAIT/WHEELCHAIR. VOIDING MDOERATE AMOUNT OF YELLOW URINE. ANXIETY MEDICATION WORKING WELL. SLEEPING. STERI STRIPS ON LEFT HIP INTACT. WILL CONTINUE TO MONITOR FREQUENTLY.
--- NOTE | 2019-05-03 12:49 | NUR ---
chart copy request from 4w, tomorrow dc orders and sum will need to be added. bedside nurse passed that pt had question about on way to [place] if could go by her house on why home?, cm visited with pt at bedside and education that son could bring her some clothes or facility would work it out wit son prabhjot. will cont following as needed for dc needs.
--- NOTE | 2019-05-03 19:31 | NUR ---
ASSUMED CARE OF PT AT 0730. PT IS A&OX4 WITH SOME FORGETFULNESS AND VITAL SIGNS ARE STABLE. PT TAKES MEDICATIONS WHOLE WITH THIN LIQUIDS. PT PARTICIPATED WITH THERAPIES AND MADE NO COMPLAINTS OF PAIT. PT EXPECTED TO D/C TOMORROW AND HAS CHART COPY ON HER CHART AND WILL NEED TO HAVE PRINTED COPY OF D/C INSTRUCTIONS SENT TO FACILITY ON D/C. PT TRANSFERS AND AMBULATES WITH 1 PERSON ASSISTANCE WITH GAIT BELT AND WALKER. FALL PRECAUTIONS IN PLACE AND NURSING WILL CONTINUE TO MONITOR.
[2019-05-03 20:01] VITALS: BP 102/61
--- NOTE | 2019-05-04 01:40 | NUR ---
PT ASSESSMENT COMPLETED AND VSS. MEDS GIVEN ORDERED AND WELL TOLERATED. FALL PRECAUTIONS IN PLACE. UP TO THE BATHROOM WITH PIVOT TO WHEELCHAIR/GAIT/ASST. STEADY. VOIDING LARGE AMOUNT OF YELLOW URINE. PRN ANXIETY MEDICATION WORKING WELL. PT REPOSITIONING SELF IN BED. STERI STRIPS ARE DRY AND INTACT ON LEFT HIP. SLEEPING WELL. WILL CONTINUE TO MONITOR FREQUENTLY.
[2019-05-04] MEDS ORDERED: VITAMIN B-12500 MCG PO (08:13)
[2019-05-04] MEDS ORDERED: MELATONIN5 M1 PO (08:13)
[2019-05-04] MEDS ORDERED: MIRALAX17 GM PO (08:13)
[2019-05-04] MEDS ORDERED: HYDROXYZINE HCL25 M1 PO (08:13)
[2019-05-04] MEDS ORDERED: SENNA-TIME S T1 EACH PO (08:13)
[2019-05-04] MEDS ORDERED: HYDROCORTISONE30 G9 TOP (08:13)
[2019-05-04] MEDS ORDERED: ASPIRIN325 PO (08:13)
[2019-05-04] MEDS ORDERED: TYLENOL325 MG PO (08:13)
[2019-05-04 09:12] VITALS: BP 95/53
--- NOTE | 2019-05-04 11:10 | NUR ---
[facility] AT 0700. PATIENT IS ALERT AND ORIENTED X4. PATIENT SANABRIA'S, LENS EDGER ARE EQUAL. UP WITH THE ASSIST TO BR WITH ASSIST OF 1 STAFF, GAIT BELT, AND W/C. UP IN RECLINER FOR MEALS. FALL AND SAFETY PROTOCOLS IN PLACE. DENIES ANY PAIN AT THIS TIME. CONTINUES TO PROGRESS TOWARDS D/C GOALS. WILL CONTINUE TO [facility]. PLAN D/C TO [facility] AT 1300.
--- NOTE | 2019-05-04 11:41 | NUR ---
PT DISCHARGING TO [facility] FAXED DC ORDERS/SUMMARY TO FACILITY SPOKE WITH ROMA IN ADM SHE RECEIVED DC ORDERS AND ARRANGED TRANSPORT VIA [facility] FOR 1300 TODAY. LEFT MSG WITH SON (ROMULO) OF DC AND TIME OF TRANSPORT. UNIT NOTIFIED AND CHART COPY PER US. RN TO CALL REPORT TO [phone].
--- NOTE | 2019-05-04 13:42 | NUR ---
PATIENT D/C'D TO [facility] WITH ALL OF HER BELONGINGS. PATIENT LEFT FACILITY PER W/C.
== END 2019-05-04 13:43 | DRG 536 ==
PROVIDERS: Nurse Practitioner; ADMIT Physical Medicine & Rehabilitation
DX: S72.002A Fracture of unspecified part of neck of left femur, initial encounter for closed fracture (principal); S05.42XA Penetrating wound of orbit with or without foreign body, left eye, initial encounter; D62 Acute posthemorrhagic anemia; K56.7 Ileus, unspecified; E46 Unspecified protein-calorie malnutrition; W18.39XA Other fall on same level, initial encounter; K21.9 Gastro-esophageal reflux disease without esophagitis; I10 Essential (primary) hypertension; K59.00 Constipation, unspecified; S05.12XA Contusion of eyeball and orbital tissues, left eye, initial encounter; F01.50 Vascular dementia, unspecified severity, without behavioral disturbance, psychotic disturbance, mood disturbance, and anxiety; F41.8 Other specified anxiety disorders; D72.829 Elevated white blood cell count, unspecified; L29.9 Pruritus, unspecified; Z88.8 Allergy status to other drugs, medicaments and biological substances; Y93.89 Activity, other specified; Y92.89 Other specified places as the place of occurrence of the external cause; Y99.8 Other external cause status; Z87.820 Personal history of traumatic brain injury; Z68.24 Body mass index [BMI] 24.0-24.9, adult
CPT/HCPCS: 10112